=== PATIENT | female | born 1965 | race American Indian/Alaskan Native ===

== ENCOUNTER 2018-01-24 07:17 | Emergency (ER) | payer BC ==
[2018-01-24] MEDS ORDERED: ASPIRIN PO ONE (07:28)
[2018-01-24 07:52] LABS: Basophils % (Auto) 0.4 % (0.0-1.8); Eosinophils # (Auto) 0.1 K/mm3 (0.0-0.4); Eosinophils % (Auto) 1.9 % (0.0-4.3); Hematocrit 39.1 % (30.3-42.9); Hemoglobin 12.6 gm/dl (10.1-14.3); Lymphocytes # (Auto) 2.9 K/mm3 (1.2-5.4); Lymphocytes % (Auto) 42.7 % (13.4-35.0); Mean Corpuscular HGB Conc 32 % (30-34); Mean Corpuscular Hemoglobin 28 pg (28-32); Mean Corpuscular Volume 88 fl (79-97); Monocytes # (Auto) 0.3 K/mm3 (0.0-0.8); Monocytes % (Auto) 4.8 % (0.0-7.3); Platelet Count 296 K/mm3 (140-440); Red Blood Count 4.45 M/mm3 (3.65-5.03); Red Cell Distribution Width 14.1 % (13.2-15.2)
[2018-01-24 08:11] LABS: BUN/Creatinine Ratio 25; Blood Urea Nitrogen 10 mg/dL (7-17); Calcium 9.6 mg/dL (8.4-10.2); Hemolysis Index 3
--- NOTE | 2018-01-24 11:28 | Emergency Department Report ---
ED Chest Pain HPI - General Chief Complaint: Chest Pain Stated Complaint: CHEST PAIN Time Seen by Provider: 01/24/18 11:05 Source: patient Mode of arrival: Ambulatory Limitations: No Limitations - History of Present Illness Initial Comments: She is a 52-year-old female that presents to emergency room with chest pain that started at 7 AM this morning and has resolved at 8 AM this morning. Patient states the pain was in the middle of her chest and radiated to her back. Patient denies shortness of breath. Patient denies anxiety. Patient denies diaphoresis and fever and cough. Patient denies nausea and vomiting. Patient states the pain was a 8 out of 10 and substernal. The patient states it was worse with activity and better with rest. MD Complaint: chest pain -: Sudden Onset: during rest Pain Location: substernal Pain Radiation: back Severity: severe Severity scale (0 -10): 8 Quality: sharp Consistency: now resolved Improves With: medication-other, rest Worsens With: exertion re: denies: nausea, vomting, diaphoresis, dyspnea, sense of impending doom Other Symptoms: denies: cough, fever, syncope, rash, acid taste in mouth, leg swelling, palpitations, burping Treatments Prior to Arrival: aspirin Aspirin use within the Past 7 Days: (0) No - Related Data On Oral Contraceptives: No Allergies Allergy/AdvReac Type Severity Reaction Status Date / Time No Known Allergies Allergy Unverified 01/24/18 07:23 Heart Score - HEART Score History: Slightly suspicious EKG: Normal Age: 45-65 Risk factors: No known risk factors Troponin: < normal limit HEART Score: 1 ED Review of Systems ROS: Stated complaint: CHEST PAIN Other details as noted in HPI Comment: All other systems reviewed and negative Constitutional: denies: chills, fever Eyes: denies: eye pain, eye discharge, vision change ENT: denies: ear pain, throat pain Respiratory: denies: cough, shortness of breath, wheezing Cardiovascular: denies: chest pain, palpitations Endocrine: no symptoms reported Gastrointestinal: denies: abdominal pain, nausea, diarrhea Genitourinary: denies: urgency, dysuria, discharge Musculoskeletal: denies: back pain, joint swelling, arthralgia Skin: denies: rash, lesions Neurological: denies: headache, weakness, paresthesias Psychiatric: denies: anxiety, depression Hematological/Lymphatic: denies: easy bleeding, easy bruising ED Past Medical Hx - Past Medical History Previous Medical History?: Yes Hx Hypertension: Yes Additional medical history: MITRAL VALVE REGURGITATION - Surgical History Past Surgical History?: Yes Hx Cholecystectomy: Yes Hx Breast Surgery: Yes (BREAST SURGERY) Additional Surgical History: TUBAL LIGATION - Family History Family history: hypertension - Social History Smoking Status: Never Smoker Substance Use Type: None ED Physical Exam - General Limitations: No Limitations General appearance: alert, in no apparent distress - Head Head exam: Present: atraumatic, normocephalic - Eye Eye exam: Present: normal appearance - ENT ENT exam: Present: mucous membranes moist - Neck Neck exam: Present: normal inspection - Respiratory Respiratory exam: Present: normal lung sounds bilaterally. Absent: respiratory distress - Cardiovascular Cardiovascular Exam: Present: regular rate, normal rhythm. Absent: systolic murmur, diastolic murmur, rubs, gallop - GI/Abdominal GI/Abdominal exam: Present: soft, normal bowel sounds - Extremities Exam Extremities exam: Present: normal inspection - Back Exam Back exam: Present: normal inspection - Neurological Exam Neurological exam: Present: alert, oriented X3 - Psychiatric Psychiatric exam: Present: normal affect, normal mood - Skin Skin exam: Present: warm, dry, intact, normal color. Absent: rash ED Course Vital Signs 01/24/18 01/24/18 07:24 12:07 Temperature 98.4 F 97.5 F L Pulse Rate 77 99 H Respiratory 17 18 Rate Blood Pressure 153/76 Blood Pressure 147/84 [Left] O2 Sat by Pulse 98 98 Oximetry - Reevaluation(s) Reevaluation #1: Patient states she does not want to be admitted. Patient signed out AMA. Risks discussed with patient. Patient voiced understanding of risks. 01/24/18 12:11 DIRK score - Dirk Score Age > 65: (0) No Aspirin use within the Past 7 Days: (0) No 3 or more CAD Risk Factors: (0) No 2 or more Angina events in past 24 hrs: (0) No Known CAD with more than 50% Stenosis: (0) No Elevated Cardiac Markers: (0) No ST Deviation Greater than 0.5mm: (0) No DIRK Score: 0 ED Medical Decision Making - Lab Data Result diagrams: 01/24/18 07:37 01/24/18 07:37 - EKG Data -: EKG Interpreted by Me EKG shows normal: sinus rhythm, axis, intervals, QRS complexes, ST-T waves Rate: normal - EKG Data Interpretation: no acute changes, normal EKG - Medical Decision Making She has 52-year-old female that presented to emergency with chest pain. Plan was to admit patient but patient signed out AMA. Discussed both sets of labs with patient as well as all results - Differential Diagnosis GERD, chest pain, ACS, musculoskeletal, anxiety Critical care attestation.: If time is entered above; I have spent that time in minutes in the direct care of this critically ill patient, excluding procedure time. ED Disposition Clinical Impression: Chest pain Disposition: DC-07 LEFT AGAINST MED ADVICE Is pt being admited?: No Does the pt Need Aspirin: No Condition: Stable Instructions: Chest Pain (ED) Additional Instructions: Patient to return to ER if condition worsens. Patient to see primary care 1-2 days. Patient to continue all medications. Patient to monitor blood pressure Referrals: PRIMARY CARE, [Primary Care Provider] - 3-5 Days Time of Disposition: 12:13
[2018-01-24] MEDS ORDERED: PERCOCET 5/325 PO ONE (12:04)
[2018-01-24 12:08] VITALS: BP 147/84
== END 2018-01-24 12:15 | disposition left against medical advice (07) ==
LOC: ED 07:17
DX: R07.9 Chest pain, unspecified (principal); I10 Essential (primary) hypertension
CPT/HCPCS: 36415; 80048; 84484; 85025; 93005; 93010

== ENCOUNTER 2018-02-06 06:42 | Outpatient (CLI) | payer BC | END 2018-02-06 06:43 | disposition home or self-care (01) | LOC: ECHO 06:42 | PROVIDERS: ATTEND Physician Assistant Medical | DX: I08.1 Rheumatic disorders of both mitral and tricuspid valves (principal); I10 Essential (primary) hypertension | CPT/HCPCS: 93306 ==

== ENCOUNTER 2018-02-11 05:58 | Outpatient (CLI) | payer BC | END 2018-02-11 05:59 | disposition home or self-care (01) | LOC: CARD 05:58 | PROVIDERS: ATTEND Physician Assistant Medical | DX: I10 Essential (primary) hypertension (principal); R07.9 Chest pain, unspecified; Z90.49 Acquired absence of other specified parts of digestive tract; Z98.890 Other specified postprocedural states | CPT/HCPCS: 93017 ==

== ENCOUNTER 2018-02-20 13:22 | Outpatient (CLI) | payer BC ==
--- NOTE | 2018-02-20 20:28 | Magnetic Resonance Report ---
FINAL REPORT PROCEDURE: MRI left knee without contrast. TECHNIQUE: Magnetic resonance imaging of the LEFT knee was performed using standard pulse sequences. CPT 76886 HISTORY: Knee pain. COMPARISON: No prior studies are available for comparison. FINDINGS: The bones appear intact without fracture. There is normal signal intensity from the bone marrow. There are no definite bone contusions. The articular cartilage appears satisfactory. The lateral meniscus appears intact. On the coronal images there is a short segment of abnormal signal within the body of the medial meniscus. This is located centrally and along the inferior surface. This is consistent with a small tear or degeneration. The remainder of the medial meniscus appears intact. The anterior cruciate ligament and posterior cruciate ligament appear intact. The quadriceps tendon and the patellar ligament are intact. There is a large knee effusion. The medial collateral ligament and the lateral collateral ligament complex appear intact. IMPRESSION: Small area of abnormal signal intensity within the body of the medial meniscus. Large knee effusion.
--- NOTE | 2018-02-20 20:54 | Magnetic Resonance Report ---
FINAL REPORT PROCEDURE: MRI right knee without contrast. TECHNIQUE: Magnetic resonance imaging of the RIGHT knee was performed using standard pulse sequences. CPT 89300 HISTORY: Knee pain. COMPARISON: No prior studies are available for comparison. FINDINGS: The bones appear intact without fracture. There is normal signal intensity from the bone marrow. There are no bone contusions. There is early osteophyte formation arising medially from the distal femur and the proximal tibia. The articular cartilage appears satisfactory. The lateral meniscus appears intact. There is a large area of abnormal signal within body and posterior horn of the medial meniscus. This signal extends to the inferior articular surface. It is consistent with a horizontal cleavage tear. The anterior cruciate ligament and posterior cruciate ligament are intact. The quadriceps tendon and the patellar ligament are intact. There is a small knee effusion in the suprapatellar bursa. The medial collateral ligament and the lateral collateral ligament complex appear intact. IMPRESSION: Large horizontal tear in the body and posterior horn of the medial meniscus. Small knee effusion. Early osteoarthritis.
== END 2018-02-20 13:23 | disposition home or self-care (01) ==
LOC: MRI 13:22
PROVIDERS: ATTEND Orthopaedic Surgery
DX: S83.241A Other tear of medial meniscus, current injury, right knee, initial encounter (principal); M25.462 Effusion, left knee; X58.XXXA Exposure to other specified factors, initial encounter; Y93.89 Activity, other specified; Y92.89 Other specified places as the place of occurrence of the external cause; Y99.8 Other external cause status
CPT/HCPCS: 73721

== ENCOUNTER 2018-07-15 08:28 | Outpatient (CLI) | payer BC ==
[2018-07-15 08:47] LABS: Bilirubin,Urine NEG (Negative); Blood,Urine NEG (Negative); Color,Urine Yellow (Yellow); Mucus,Urine FEW /HPF; Protein,Urine <15 mg/dL mg/dL (Negative); Urobilinogen,Urine < 2.0 mg/dL (<2.0)
== END 2018-07-15 08:29 | disposition home or self-care (01) ==
LOC: LAB 08:28
DX: N39.0 Urinary tract infection, site not specified (principal); I10 Essential (primary) hypertension; M19.90 Unspecified osteoarthritis, unspecified site; Z90.49 Acquired absence of other specified parts of digestive tract
CPT/HCPCS: 81001; 87086

== ENCOUNTER 2018-11-25 05:57 | Outpatient (CLI) | payer BC ==
--- NOTE | 2018-11-25 16:02 | XRay Report ---
CHEST TWO VIEWS: 11/25/18 14:27 CLINICAL: Hypertension COMPARISON: None FINDINGS: Normal heart and pulmonary vasculature. The lungs are normally expanded and clear.Moderate degenerative change in the thoracic spine. IMPRESSION: No acute cardiopulmonary process.
== END 2018-11-25 05:58 | disposition home or self-care (01) ==
LOC: CARD 05:57
DX: I10 Essential (primary) hypertension (principal); M47.814 Spondylosis without myelopathy or radiculopathy, thoracic region; M19.90 Unspecified osteoarthritis, unspecified site; R94.31 Abnormal electrocardiogram [ECG] [EKG]; Z90.49 Acquired absence of other specified parts of digestive tract
CPT/HCPCS: 71046; 93005; 93010

== ENCOUNTER 2019-07-03 06:02 | Outpatient (CLI) | payer BC ==
[2019-07-03 09:54] LABS: Alanine Aminotransferase 21 units/L (7-56); Albumin 4.4 g/dL (3.9-5); BUN/Creatinine Ratio 18; Blood Urea Nitrogen 7 mg/dL (7-17); Calcium 9.7 mg/dL (8.4-10.2); Hemolysis Index 2; LDL Cholesterol,Direct 142 mg/dL (50-130)
[2019-07-03 10:29] LABS: Chol/HDL Ratio 4.06 %; HDL Cholesterol 47 mg/dL (40-59)
[2019-07-03 11:02] LABS: Bacteria,Urine 1+ /HPF (Negative); Bilirubin,Urine NEG (Negative); Blood,Urine NEG (Negative); Color,Urine Amber (Yellow); Mucus,Urine 3+ /HPF; Protein,Urine <15 mg/dL mg/dL (Negative); Urobilinogen,Urine < 2.0 mg/dL (<2.0)
== END 2019-07-03 06:03 | disposition home or self-care (01) ==
LOC: LAB 06:02
PROVIDERS: ATTEND Nurse Practitioner Neonatal, Critical Care
DX: I10 Essential (primary) hypertension (principal); R73.03 Prediabetes
CPT/HCPCS: 36415; 80053; 80061; 81001; 83036; 84443

== ENCOUNTER 2020-02-18 08:05 | Observation (INO) | payer BC ==
[2020-02-18 09:11] LABS: Basophils % (Auto) 0.6 % (0.0-1.8); Eosinophils # (Auto) 0.1 K/mm3 (0.0-0.4); Eosinophils % (Auto) 3.4 % (0.0-4.3); Hematocrit 39.6 % (30.3-42.9); Hemoglobin 13.2 gm/dl (10.1-14.3); Lymphocytes # (Auto) 2.4 K/mm3 (1.2-5.4); Lymphocytes % (Auto) 54.8 % (13.4-35.0); Mean Corpuscular HGB Conc 33 % (30-34); Mean Corpuscular Volume 88 fl (79-97); Monocytes # (Auto) 0.2 K/mm3 (0.0-0.8); Platelet Count 315 K/mm3 (140-440); Red Blood Count 4.51 M/mm3 (3.65-5.03); Red Cell Distribution Width 13.5 % (13.2-15.2)
--- NOTE | 2020-02-18 09:15 | Cat Scan Report ---
CT HEAD WITHOUT CONTRAST INDICATION : MAIN: headache, HX OF HBP, NOSE BLEED. TECHNIQUE: Axial imaging performed from the skull apex through the skull base without the use of con trast. Sagittal and coronal reformatted images. All CT scans at this location are performed using C T dose reduction for ALARA by means of automated exposure control. COMPARISON: 06/26/2017 FINDINGS: Parenchyma: No acute intracranial hemorrhage or parenchymal abnormality. Ventricles: Ventricles are normal in size and appear symmetric. Bones: No acute osseous abnormality. Sinuses: Sinuses and mastoid air cells are clear. Soft tissues: Soft tissues including the orbits appear normal. IMPRESSION: No acute abnormality. Signer Name: Preet Feliciano Jr, MD Signed: 02/18/2020 9:10 AM Workstation Name: [id number]
[2020-02-18 09:19] LABS: INR 0.94 (0.87-1.13)
[2020-02-18 09:20] LABS: Partial Thromboplastin Time 26.6 Sec. (24.2-36.6)
[2020-02-18 09:33] LABS: Alanine Aminotransferase 23 units/L (7-56); Albumin 4.5 g/dL (3.9-5)
[2020-02-18 09:34] LABS: Creatine Kinase MB 1.6 ng/mL (0.0-4.0)
[2020-02-18 09:35] LABS: Bilirubin,Direct < 0.2 mg/dL (0-0.2)
[2020-02-18 09:37] LABS: BUN/Creatinine Ratio 14; Blood Urea Nitrogen 7 mg/dL (7-17); Calcium 9.7 mg/dL (8.4-10.2); Hemolysis Index 6
--- NOTE | 2020-02-18 09:41 | Vascular Lab Report ---
DUPLEX DOPPLER RIGHT LOWER EXTREMITY VEINS INDICATION: Popliteal pain/ Syncope FINDINGS: There is no thrombus within the deep veins of the right lower extremity from the common femoral to th e calf veins. There is normal compression and augmentation on spectral analysis. IMPRESSION: No sonographic evidence for DVT in the right lower extremity. Signer Name: Prince Alejandro MD Signed: 02/18/2020 9:36 AM Workstation Name: [email or web address]
--- NOTE | 2020-02-18 10:07 | XRay Report ---
CHEST 1 VIEW 02/18/2020 8:59 AM INDICATION / CLINICAL INFORMATION: Syncope/HTN. COMPARISON: Chest x-ray on 11/25/2018 FINDINGS: SUPPORT DEVICES: None. HEART / MEDIASTINUM: No significant abnormality. LUNGS / PLEURA: No significant pulmonary or pleural abnormality. No pneumothorax. ADDITIONAL FINDINGS: No significant additional findings. IMPRESSION: 1. No acute findings. Signer Name: Prince Alejandro MD Signed: 02/18/2020 10:03 AM Workstation Name: [id number]
--- NOTE | 2020-02-18 10:31 | History and Physical Report ---
History of Present Illness Date of examination: 02/18/20 Date of admission: 02/18/20 Chief complaint: syncope History of present illness: This is a 54-year-old female with h/o HTN, mitral valve prolapse who works in food services at [employer] admitted today after having a syncopal episode. She states that she was not feeling well the past few days due to high blood pressure. She had been experiencing headache and generalized weakness and malaise. She was going to call out sick from work today but decided to come to work instead. After arrival at work, she continued to feel ill and thus she decided to go home. She got as far as the lobby, tried to reach the push button for the elevator and then she passed out. She states that she fell and briefly lost consciousness but did not hurt her self. She was transported to the emergency department for further evaluation. She states that she has never had a syncopal or near syncopal episode before. There is no report of seizure like activities. Patient complains of mild occipital headache now, BP noted to be slightly elevated in the ER. She denies any occurrence of chest pain, SOB, palpitations, n/v, diaphoresis. Chest x-ray without any infiltrates, normal troponin, EKG NSR, CT head without any acute findings. Patient being admitted for further evaluation and management. Review of System: Constitutional: no fever, no chills, no weight loss, + headache Ears, eyes, nose, mouth and throat: no nasal congestion, no nasal discharge, no sinus pressure, no vision change, no red eye. Neck: No neck pain or rigidity. Cardiovascular: No chest pain, no orthopnea, no palpitations, no leg swelling Respiratory: No shortness of breath, no cough, no congestion, no wheezing Gastrointestinal: no abdominal pain, no nausea, no vomiting Genitourinary : no dysuria, no hematuria Musculoskeletal: no joint swelling or muscle ache Integumentary: no rash, no pruritis Neurological: no parathesias, no numbness, no tingling Endocrine: no cold or heat intolerance, no polyuria or polydipsia Hematologic/Lymphatic: no easy bruising, no easy bleeding, no gland swelling Allergic/Immunologic: no urticaria, no angioedema. Past History Past Medical History: hyperlipidemia, other (Mitral valve prolapse) Past Surgical History: Other (Breast reduction, tubal ligation, cholecystectomy) Social history: denies: smoking, alcohol abuse, prescription drug abuse Family history: hypertension Medications and Allergies Allergies Allergy/AdvReac Type Severity Reaction Status Date / Time No Known Allergies Allergy Unverified 01/24/18 07:23 Home Medications Medication Instructions Recorded Confirmed Last Taken Type Amlodipine Besylate/Valsartan 10 - 320 mg PO QDAY 02/18/20 02/18/20 02/18/20 History [Amlodipine-Valsartan 10-320 mg] Metoprolol SUCCINATE ER TAB 50 mg PO QDAY 02/18/20 02/18/20 02/18/20 History Exam - Physical Exam Narrative exam: GENERAL: well-developed and obese -Swedish female lying on bed appeared to be in no discomfort. HEENT: Normocephalic. Atraumatic. No conjunctival congestion or icterus. Patient has moist mucous membranes. NECK: Supple. Trachea midline. CHEST/LUNGS: Clear to auscultated bilaterally, breathing nonlabored. No wheezes crackles or rhonchi. HEART/CARDIOVASCULAR: Regular in rate and rhythm. S1 and S2 positive. ABDOMEN: Abdomen is soft, nontender. Patient has normal bowel sounds. SKIN: There is no rash. Warm and dry. NEURO: No focal motor deficit. Follows command. MUSCULOSKELETAL: No joint effusion or tenderness. EXTRIMITY: No edema, no cyanosis or clubbing. PSYCH: Cooperative. - Constitutional Vitals: Temp Pulse Resp BP Pulse Ox 98.6 F 75 12 153/75 100 02/18/20 08:12 02/18/20 08:12 02/18/20 08:12 02/18/20 08:12 02/18/20 08:12 Results - Labs CBC & Chem 7: 02/18/20 08:37 02/19/20 04:33 Labs: Abnormal lab results 02/18/20 02/18/20 Range/Units 08:37 08:37 WBC 4.4 L (4.5-11.0) K/mm3 Lymph % (Auto) 54.8 H (13.4-35.0) % Seg Neutrophils % 36.2 L (40.0-70.0) % Seg Neutrophils # 1.6 L (1.8-7.7) K/mm3 Potassium 3.5 L (3.6-5.0) mmol/L Creatinine 0.5 L (0.7-1.2) mg/dL Glucose 101 H (65-100) mg/dL Total Creatine Kinase 151 H (30-135) units/L - Imaging and Cardiology EKG: report reviewed (NSR) Chest x-ray: report reviewed (no infiltrates) CT Scan - head: report reviewed (no acute abnormality) Assessment and Plan Syncope, likely vasovagal hypertension, uncontrolled Mitral valve prolapse h/o Obesity Hypokalemia DVT prophylaxis Full code - admit to telemetry for observation -Cardiology consulted, plan for stress test tomorrow morning -We will follow 2D echo, initial work-up in the ER is negative -Replete electrolytes, monitor BMP -Continue to monitor clinically with supportive care - lovenox for DVt Px
--- NOTE | 2020-02-18 10:32 | Emergency Department Report ---
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 She states that she was not feeling well today. She complained of weakness and generalized malaise. She decided that she would go home. She got as far as the lobby and then suffered a syncopal episode. She states that she fell and briefly lost consciousness but did not hurt her self. She was transported to the emergency department for further evaluation. She states that she has never had a syncopal or near syncopal episode before. She did complain of some occipital frontal headache which was moderate in intensity and not sudden in onset. -: Sudden Consistency: now resolved Improves with: none Worsens with: none Associated Symptoms: denies other symptoms, weakness Treatments Prior to Arrival: none - Related Data Allergies Allergy/AdvReac Type Severity Reaction Status Date / Time No Known Allergies Allergy Unverified 01/24/18 07:23 ED Review of Systems ROS: Stated complaint: SYNCOPAL EPISODE Other details as noted in HPI Constitutional: weakness. denies: chills, fever Eyes: denies: eye pain, eye discharge, vision change ENT: denies: ear pain, throat pain Respiratory: denies: cough, shortness of breath, wheezing Cardiovascular: denies: chest pain, palpitations Endocrine: no symptoms reported Gastrointestinal: denies: abdominal pain, nausea, diarrhea Genitourinary: denies: urgency, dysuria, discharge Musculoskeletal: as per HPI, other (Complained of discomfort behind the right knee). denies: back pain, arthralgia Skin: denies: rash, lesions Neurological: headache. denies: weakness, paresthesias Psychiatric: denies: anxiety, depression Hematological/Lymphatic: denies: easy bleeding, easy bruising ED Past Medical Hx - Past Medical History Hx Hypertension: Yes Hx Arthritis: Yes Additional medical history: MITRAL VALVE REGURGITATION - Surgical History Hx Cholecystectomy: Yes Hx Breast Surgery: Yes (BREAST SURGERY) Additional Surgical History: TUBAL LIGATION - Social History Smoking Status: Never Smoker Substance Use Type: Alcohol Other Social History: No recent travel. ED Physical Exam - General Limitations: No Limitations General appearance: alert, in no apparent distress - Head Head exam: Present: atraumatic, normocephalic - Eye Eye exam: Present: normal appearance, PERRL, EOMI. Absent: scleral icterus - ENT ENT exam: Present: mucous membranes moist - Neck Neck exam: Present: normal inspection. Absent: tenderness, meningismus - Respiratory Respiratory exam: Present: normal lung sounds bilaterally. Absent: respiratory distress - Cardiovascular Cardiovascular Exam: Present: regular rate, normal rhythm. Absent: systolic murmur, diastolic murmur, rubs, gallop - GI/Abdominal GI/Abdominal exam: Present: soft, normal bowel sounds. Absent: distended, tenderness, guarding, rebound - Extremities Exam Extremities exam: Present: normal inspection - Back Exam Back exam: Present: normal inspection - Neurological Exam Neurological exam: Present: alert, oriented X3, CN II-XII intact. Absent: motor sensory deficit - Psychiatric Psychiatric exam: Present: normal affect, normal mood - Skin Skin exam: Present: warm, dry, intact, normal color. Absent: rash ED Course Vital Signs 02/18/20 08:12 Temperature 98.6 F Pulse Rate 75 Respiratory 12 Rate Blood Pressure 153/75 O2 Sat by Pulse 100 Oximetry - Reevaluation(s) Reevaluation #1: Patient remained largely asymptomatic in the emergency department. Her work-up was essentially negative. She is admitted to the hospital service for further care and evaluation. 02/18/20 10:35 ED Medical Decision Making - Lab Data Result diagrams: 02/18/20 08:37 02/18/20 08:37 Laboratory Results - last 24 hr 02/18/20 02/18/20 02/18/20 08:37 08:37 08:37 WBC 4.4 L RBC 4.51 Hgb 13.2 Hct 39.6 MCV 88 MCH 29 MCHC 33 RDW 13.5 Plt Count 315 Lymph % (Auto) 54.8 H Steele % (Auto) 5.0 Eos % (Auto) 3.4 Baso % (Auto) 0.6 Lymph # 2.4 Steele # 0.2 Eos # 0.1 Baso # 0.0 Seg Neutrophils % 36.2 L Seg Neutrophils # 1.6 L PT 12.7 INR 0.94 APTT 26.6 D-Dimer 178.53 Sodium 140 Potassium 3.5 L Chloride 101.9 Carbon Dioxide 24 Anion Gap 18 BUN 7 Creatinine 0.5 L Estimated GFR > 60 BUN/Creatinine Ratio 14 Glucose 101 H Calcium 9.7 Magnesium 2.10 Total Bilirubin Direct Bilirubin Indirect Bilirubin AST ALT Alkaline Phosphatase Total Creatine Kinase 151 H CK-MB (CK-2) 1.6 CK-MB (CK-2) Rel Index 1.0 Troponin T < 0.010 Total Protein Albumin Albumin/Globulin Ratio 02/18/20 08:37 WBC RBC Hgb Hct MCV MCH MCHC RDW Plt Count Lymph % (Auto) Steele % (Auto) Eos % (Auto) Baso % (Auto) Lymph # Steele # Eos # Baso # Seg Neutrophils % Seg Neutrophils # PT INR APTT D-Dimer Sodium Potassium Chloride Carbon Dioxide Anion Gap BUN Creatinine Estimated GFR BUN/Creatinine Ratio Glucose Calcium Magnesium Total Bilirubin 0.40 Direct Bilirubin < 0.2 Indirect Bilirubin 0.2 AST 24 ALT 23 Alkaline Phosphatase 66 Total Creatine Kinase CK-MB (CK-2) CK-MB (CK-2) Rel Index Troponin T Total Protein 7.1 Albumin 4.5 Albumin/Globulin Ratio 1.7 - EKG Data -: EKG Interpreted by Me EKG shows normal: sinus rhythm, axis, intervals, QRS complexes, ST-T waves Rate: normal - EKG Data Interpretation: no acute changes - Radiology Data Radiology results: report reviewed Chest x-ray no acute process. CT the head normal per radiologist. Doppler study was negative. Critical care attestation.: If time is entered above; I have spent that time in minutes in the direct care of this critically ill patient, excluding procedure time. ED Disposition Clinical Impression: Syncope Qualifiers: Syncope type: unspecified Qualified Code(s): R55 - Syncope and collapse Disposition: OP ADMIT IP TO THIS HOSP Is pt being admited?: Yes Does the pt Need Aspirin: Yes Condition: Stable Instructions: Syncope (ED) Referrals: GREGG JOHN MD [Primary Care Provider] - 3-5 Days Time of Disposition: 10:51
[2020-02-18] MEDS: ASPIRIN 325 MG TAB PO ONE ×2 (11:00→11:07)
[2020-02-18] MEDS: FAMOTIDINE 20 MG TAB PO SCH ×2 (11:00→22:39)
[2020-02-18] MEDS: ENOXAPARIN 40 MG/0.4 ML INJ SUB-Q SCH (11:00)
[2020-02-18] MEDS ORDERED: ONDANSETRON 4 MG/2 ML INJ IV PRN (11:00)
[2020-02-18] MEDS ORDERED: ACETAMINOPHEN 325 MG TAB PO PRN (11:00)
--- NOTE | 2020-02-18 11:54 | Consultation ---
History of Present Illness Consult date: 02/18/20 Requesting physician: EDNA BENTON Consult reason: syncope History of present illness: The pt is a 54-year-old female with a past medical history of HTN. Pt works in [employer] here. She presented for evaluation following a syncopal episode this morning. She states that she was not feeling well the past few days due to high blood pressure. She had been experiencing headache and generalized weakness and malaise. She was going to call out sick from work today but decided to come to work instead. After arrival at work, she continued to feel ill and thus she decided to go home. 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 She was transported to the emergency department for further evaluation. She states that she has never had a syncopal or near syncopal episode before. She denies any occurrence of chest pain, SOB, palpitations, n/v, diaphoresis. Echo done 02/2018 showed EF 50-55%, impaired relaxation, mild MR and TR, RVSP 34mmHg. Past History Past Medical History: hypertension Medications and Allergies Allergies Allergy/AdvReac Type Severity Reaction Status Date / Time No Known Allergies Allergy Unverified 01/24/18 07:23 Active Meds: Active Medications Acetaminophen (Tylenol) 650 mg PO Q4H PRN PRN Reason: Pain MILD(1-3)/Fever >100.5/VILLARREAL Enoxaparin Sodium (Enoxaparin) 40 mg SUB-Q QDAY@1000 [facility] Last Admin: 02/18/20 11:00 Dose: 40 mg Documented by: Famotidine (Pepcid) 20 mg PO BID [facility] Last Admin: 02/18/20 11:00 Dose: 20 mg Documented by: Ondansetron HCl (Zofran) 4 mg IV Q8H PRN PRN Reason: Nausea And Vomiting Sodium Chloride (Sodium Chloride Flush Syringe 10 Ml) 10 ml IV BID [facility] Sodium Chloride (Sodium Chloride Flush Syringe 10 Ml) 10 ml IV PRN PRN PRN Reason: LINE FLUSH Review of Systems Constitutional: no weight loss, no weight gain, no fever, no chills, no sweats Ears, nose, mouth and throat: no ear pain, no nose pain, no sinus pressure, no sinus pain Cardiovascular: syncope, lightheadedness, high blood pressure, no chest pain, no orthopnea, no palpitations, no rapid/irregular heart beat, no edema, no shortness of breath, no dyspnea on exertion, no paroxysmal nocturnal dyspnea, no leg edema Respiratory: no cough, no shortness of breath, no dyspnea on exertion, no congestion, no wheezing, no pain on inspiration Gastrointestinal: no abdominal pain, no nausea, no vomiting, no diarrhea, no constipation, no change in bowel habits Genitourinary Female: no pelvic pain, no flank pain, no dysuria, no urinary frequency, no urgency Musculoskeletal: no neck stiffness, no neck pain, no shooting arm pain, no arm numbness/tingling, no low back pain, no shooting leg pain Integumentary: no rash, no pruritis, no redness, no sores, no wounds Neurological: syncope, no head injury, no paralysis, no parathesias, no numbness, no tingling, no seizures Psychiatric: no anxiety Endocrine: no cold intolerance, no heat intolerance Hematologic/Lymphatic: no easy bruising, no easy bleeding Allergic/Immunologic: no urticaria Physical Examination Vital Signs Temp Pulse Resp BP Pulse Ox 98.6 F 75 12 153/75 100 02/18/20 08:12 02/18/20 08:12 02/18/20 08:12 02/18/20 08:12 02/18/20 08:12 General appearance: no acute distress HEENT: Positive: PERRL, Normocephaly, Mucus Membranes Moist Neck: Positive: neck supple, trachea midline Cardiac: Positive: Reg Rate and Rhythm, S1/S2 Lungs: Positive: Decreased Breath Sounds Neuro: Positive: Grossly Intact Abdomen: Negative: Tender Skin: Negative: Rash Musculoskeletal: No Pain Extremities: Absent: edema Results 02/18/20 08:37 02/18/20 08:37 Cardiac Enzymes 02/18/20 02/18/20 Range/Units 08:37 08:37 AST 24 (5-40) units/L CK-MB (CK-2) 1.6 (0.0-4.0) ng/mL Coagulation 02/18/20 Range/Units 08:37 PT 12.7 (12.2-14.9) Sec. INR 0.94 (0.87-1.13) APTT 26.6 (24.2-36.6) Sec. CBC 02/18/20 Range/Units 08:37 WBC 4.4 L (4.5-11.0) K/mm3 RBC 4.51 (3.65-5.03) M/mm3 Hgb 13.2 (10.1-14.3) gm/dl Hct 39.6 (30.3-42.9) % Plt Count 315 (140-440) K/mm3 Lymph # 2.4 (1.2-5.4) K/mm3 Cannon # 0.2 (0.0-0.8) K/mm3 Eos # 0.1 (0.0-0.4) K/mm3 Baso # 0.0 (0.0-0.1) K/mm3 Comprehensive Metabolic Panel 02/18/20 02/18/20 Range/Units 08:37 08:37 Sodium 140 (137-145) mmol/L Potassium 3.5 L (3.6-5.0) mmol/L Chloride 101.9 (98-107) mmol/L Carbon Dioxide 24 (22-30) mmol/L BUN 7 (7-17) mg/dL Creatinine 0.5 L (0.7-1.2) mg/dL Glucose 101 H (65-100) mg/dL Calcium 9.7 (8.4-10.2) mg/dL Direct Bilirubin < 0.2 (0-0.2) mg/dL Indirect Bilirubin 0.2 mg/dL AST 24 (5-40) units/L ALT 23 (7-56) units/L Alkaline Phosphatase 66 (35-129) units/L Total Protein 7.1 (6.3-8.2) g/dL Albumin 4.5 (3.9-5) g/dL - Imaging and Cardiology Echo: report reviewed (02/2018 showed EF 50-55%, impaired relaxation, mild MR and TR, RVSP 34mmHg.) EKG: report reviewed, image reviewed EKG interpretations - Telemetry EKG Rhythm: Sinus Rhythm - EKG Sinus rhythms and dysrhythmias: sinus rhythm Assessment and Plan Head CT with NAF. DDimer WNL. ECG with NSR, NAF. Nayeli negative for AMI x 1. Obtain second set of Nayeli. Obtain echo. Plan for lexiscan MPI stress test in AM. NPO after MN. Optimize anti-hypertensive regimen. The patient has been seen in conjunction with Dr. Baker who agrees with the assessment and plan of care. - Patient Problems (1) Syncope Current Visit: Yes Status: Acute Qualifiers: Syncope type: unspecified Qualified Code(s): R55 - Syncope and collapse (2) Accelerated hypertension Current Visit: Yes Status: Acute
[2020-02-18] MEDS ORDERED: amLODIPine 10 MG TAB ONE (16:17)
[2020-02-18] MEDS: amLODIPine 10 MG TAB PO SCH (16:24)
[2020-02-19 06:24] LABS: Chol/HDL Ratio 4.06 %
[2020-02-19] MEDS ORDERED: REGADENOSON 0.4 MG/5 ML INJ IV ONE ×2 (08:33→09:00)
--- NOTE | 2020-02-19 09:51 | Progress Note ---
Assessment and Plan tte reviewed - EF 50-55%, impaired relaxation, RVSP 28mmHg. Telemetry reviewed with no acute events overnight. Orthostatic VS unremarkable. Proceed with lexiscan MPI stress test. Await findings. The patient has been seen in conjunction with Dr. Baker who agrees with the assessment and plan of care. - Patient Problems (1) Syncope Current Visit: Yes Status: Acute Qualifiers: Syncope type: unspecified Qualified Code(s): R55 - Syncope and collapse (2) Accelerated hypertension Current Visit: Yes Status: Acute Subjective Date of service: 02/19/20 Principal diagnosis: syncope Interval history: pt for stress test today, no current complaints. tele reviewed - in SR, no acute events overnight. Objective Last Vital Signs Temp 98.6 F 02/19/20 04:11 Pulse 68 02/19/20 04:11 Resp 18 02/19/20 04:11 BP 126/68 02/19/20 04:11 Pulse Ox 97 02/19/20 04:11 - Physical Examination General: No Apparent Distress HEENT: Positive: PERRL, Normocephaly, Mucus Membranes Moist Neck: Positive: neck supple, trachea midline Cardiac: Positive: Reg Rate and Rhythm, S1/S2 Lungs: Positive: clear to auscultation Neuro: Positive: Grossly Intact Abdomen: Negative: Tender Skin: Negative: Rash Musculoskeletal: No Pain Extremities: Absent: edema - Labs and Meds Lipids 02/19/20 Range/Units 04:33 Triglycerides 111 (2-149) mg/dL Cholesterol 195 (50-199) mg/dL HDL Cholesterol 48 (40-59) mg/dL Cholesterol/HDL Ratio 4.06 % Comprehensive Metabolic Panel 02/19/20 Range/Units 04:33 Potassium 3.6 (3.6-5.0) mmol/L - Imaging and Cardiology EKG: report reviewed, image reviewed Echo: report reviewed (02/2018 showed EF 50-55%, impaired relaxation, mild MR and TR, RVSP 34mmHg.) - Telemetry EKG Rhythm: Sinus Rhythm - EKG Sinus rhythms and dysrhythmias: sinus rhythm
[2020-02-19] MEDS ORDERED: ENOXAPARIN 60 MG/0.6 ML INJ SUB-Q SCH (10:00)
[2020-02-19] MEDS ORDERED: ASPIRIN 81 MG TAB CHEW PO SCH (10:00)
--- NOTE | 2020-02-19 10:21 | Discharge Summary ---
Providers - Providers Date of Admission: 02/18/20 10:38 Date of discharge: 02/19/20 Attending physician: EDNA BENTON 02/18/20 10:34 Consult to Physician [CONS] Routine Comment: Consulting Provider: DOMNIIQUE JULIEN Physician Instructions: Reason For Exam: syncope [facility] Condition: Stable Hospital course: This is a 54-year-old female with h/o HTN, mitral valve prolapse who works in food services at [employer] admitted today after having a syncopal episode. She states that she has never had a syncopal or near syncopal episode before. There is no report of seizure like activities. Patient complains of mild occipital headache, BP noted to be slightly elevated in the ER. She denies any occurrence of chest pain, SOB, palpitations, n/v, diaphoresis. Chest x-ray without any infiltrates, normal troponin, EKG NSR, CT head without any acute findings. Patient was admitted for further evaluation and management. TTE reviewed - EF 50-55%, impaired relaxation, RVSP 28mmHg. Repleted K, Telemetry reviewed with no acute events overnight. Orthostatic VS unremarkable. MPI stress test was obtained which was negative, cardiology consulted. Patient was then discharged home in stable condition. - Imaging and Cardiology EKG: report reviewed (NSR) Chest x-ray: report reviewed (no infiltrates) CT Scan - head: report reviewed (no acute abnormality) 2d echo - EF 50-55%, impaired relaxation, RVSP 28mmHg. MPI stress test: negative Discharge diagnosis and Mx: Syncope, likely vasovagal hypertension, uncontrolled Mitral valve prolapse h/o Obesity Hypokalemia Physical Exam GENERAL: well-developed and obese -Danish female lying on bed appeared to be in no discomfort. HEENT: Normocephalic. Atraumatic. No conjunctival congestion or icterus. Patient has moist mucous membranes. NECK: Supple. Trachea midline. CHEST/LUNGS: Clear to auscultated bilaterally, breathing nonlabored. No wheezes crackles or rhonchi. HEART/CARDIOVASCULAR: Regular in rate and rhythm. S1 and S2 positive. ABDOMEN: Abdomen is soft, nontender. Patient has normal bowel sounds. SKIN: There is no rash. Warm and dry. NEURO: No focal motor deficit. Follows command. MUSCULOSKELETAL: No joint effusion or tenderness. EXTRIMITY: No edema, no cyanosis or clubbing. PSYCH: Cooperative. Disposition: DC-01 TO HOME OR SELFCARE Time spent for discharge: 24 minutes Core Measure Documentation - Palliative Care Palliative Care/ Comfort Measures: Not Applicable - Core Measures Any of the following diagnoses?: none Exam - Constitutional Vitals: Temp Pulse Resp BP Pulse Ox 98.6 F 68 18 126/68 97 02/19/20 04:11 02/19/20 04:11 02/19/20 04:11 02/19/20 04:11 02/19/20 04:11 Plan Activity: advance as tolerated Weight Bearing Status: Weight Bear as Tolerated Diet: low fat, low salt Follow up with: BRIANNA RAZOTUCSON MD PIPPA [Primary Care Provider] - 3-5 Days LESLEE NASSAR MD [Staff Physician] - 7 Days Prescriptions: Aspirin [Aspirin BABY CHEW TAB] 81 mg PO QDAY #30 tab.chew
--- NOTE | 2020-02-19 11:40 | Event Note ---
Date: 02/19/20 S/p lexiscan MPI stress test today which was negative. Currently stable cardiac status. Recommend 7 day OP holter study. Pt may discharge from cardiology standpoint. Pt to present to our [place] office on 02/22/2020 @ 10:00AM for initiation of 7 day Holter study. Follow up in our [place] office with Dr. Baker on 03/09/2020 @ 2:45PM. Max BRIONES NP / DR. BAKER
[2020-02-19 11:42] VITALS: BP 164/80
[2020-02-19] MEDS: ENOXAPARIN 40 MG/0.4 ML INJ SUB-Q SCH (13:08)
[2020-02-19] MEDS: amLODIPine 10 MG TAB PO SCH (13:09)
[2020-02-19] MEDS: FAMOTIDINE 20 MG TAB PO SCH (13:09)
--- NOTE | 2020-02-19 15:24 | Treadmill Report ---
INDICATIONS: The patient is a 54-year-old female with history of hypertension, had an episode of near syncope/syncopal episode. 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 Subsequently, the patient denied any chest pain. The patient received IV regadenoson 0.4 mg intravenously. Baseline EKG showed sinus rhythm within normal limits. The patient tolerated the regadenoson without any significant side effects. No EKG changes were noted. No chest pain. The patient had myocardial perfusion imaging performed at rest and post-vasodilation using technetium Myoview imaging. Myocardial perfusion imaging showed very mild inferior defect which appeared to be worse in resting images. Gated study was performed post-vasodilation. This showed left ventricular ejection fraction calculated at 51%. Normal left ventricular volumes were noted. Transient ischemic dilation ratio was found to be 0.96. FINAL IMPRESSION: 1. The patient tolerated IV regadenoson without any significant side effects. 2. No EKG changes or chest pain. 3. No significant myocardial perfusion defects were noted except for mild fixed inferior defect, which was found to be artifactual. No significant ischemia noted and normal left ventricular systolic function noted on gated study post-vasodilation. JOB# [id number] SAMIR/HAYLEY PENA
== END 2020-02-19 16:54 | disposition home or self-care (01) ==
LOC: ED 08:05 → 4A 10:38
PROVIDERS: ADMIT Internal Medicine; ATTEND Internal Medicine
DX: R55 Syncope and collapse (principal); I10 Essential (primary) hypertension; E87.6 Hypokalemia; I34.1 Nonrheumatic mitral (valve) prolapse; E66.9 Obesity, unspecified; E78.5 Hyperlipidemia, unspecified; M19.90 Unspecified osteoarthritis, unspecified site; Z90.49 Acquired absence of other specified parts of digestive tract; Z98.51 Tubal ligation status; Z79.899 Other long term (current) drug therapy; Z68.36 Body mass index [BMI] 36.0-36.9, adult
CPT/HCPCS: 36415; 70450; 71045; 78452; 80048; 80061; 80076; 82550; 82553; 83735; 84132; 84484; 85025; 85379; 85610; 85730; 93005; 93017; 93306; 93971; 96372; 99285; A9502; G0378; J1650; J2785

== ENCOUNTER 2020-08-05 11:25 | Emergency (ER) | payer BC ==
--- NOTE | 2020-08-05 12:42 | Emergency Department Report ---
HPI - General Chief Complaint: Weakness Time Seen by Provider: 08/05/20 12:16 - HPI HPI: This is a 54-year-old female presents to the emergency department with a complaint of having some type of lightheadedness/dizziness at work prior to presentation. The patient says that she was walking out of her office when she started "staggering." She then went and sat down and the symptoms went away. She denies any headache, vision change, numbness or paresthesias, slurred speech, chest pain or shortness of breath, fever. She did not take anything for her symptoms prior to presentation. She has a past medical history of hypertension. She follows with [facility]. She follows with Dr. Baker for cardiology regarding her hypertension. No recent travel or sick contacts at home. ED Past Medical Hx - Past Medical History Previous Medical History?: Yes Hx Hypertension: Yes Hx Arthritis: Yes Additional medical history: MITRAL VALVE REGURGITATION - Surgical History Past Surgical History?: Yes Hx Cholecystectomy: Yes Hx Breast Surgery: Yes (BREAST SURGERY) Additional Surgical History: TUBAL LIGATION - Social History Smoking Status: Never Smoker Substance Use Type: None - Medications Home Medications: Home Medications Medication Instructions Recorded Confirmed Last Taken Type Amlodipine Besylate/Valsartan 10 - 320 mg PO QDAY 02/18/20 02/18/20 02/18/20 Hi story [Amlodipine-Valsartan 10-320 mg] Aspirin [Aspirin BABY CHEW TAB] 81 mg PO QDAY #30 tab.chew 02/19/20 Unknown Rx ED Review of Systems ROS: Stated complaint: MET Other details as noted in HPI Comment: All other systems reviewed and negative Constitutional: denies: chills, fever Eyes: denies: eye pain, vision change ENT: denies: ear pain, throat pain Respiratory: denies: cough, shortness of breath Cardiovascular: denies: chest pain, palpitations Gastrointestinal: denies: abdominal pain, vomiting Genitourinary: denies: dysuria, discharge Musculoskeletal: denies: back pain, arthralgia Skin: denies: rash, lesions Neurological: other (Lightheadedness/dizziness). denies: headache Physical Exam - Physical Exam Vital Signs: Vital Signs 08/05/20 11:29 Temperature 98.3 F Pulse Rate 90 Respiratory 14 Rate Blood Pressure 144/84 O2 Sat by Pulse 99 Oximetry Physical Exam: GENERAL: The patient is well-developed well-nourished. HENT: Normocephalic. Atraumatic. Patient has moist mucous membranes. EYES: Extraocular motions are intact. No nystagmus. NECK: Supple. Trachea is midline. CHEST/LUNGS: Clear to auscultation. There is no respiratory distress noted. HEART/CARDIOVASCULAR: Regular. There is no tachycardia. There is no murmur. ABDOMEN: Abdomen is soft, nontender. Patient has normal bowel sounds. SKIN: Skin is warm and dry. NEURO: The patient is awake, alert, and oriented. The patient is cooperative. The patient has no focal neurologic deficits. Normal speech. Cranial nerves II through XII grossly intact. No facial asymmetry. No pronator drift. No dysmetria. MUSCULOSKELETAL: There is no tenderness or deformity. There is no limitation range of motion. ED Course Vital Signs 08/05/20 11:29 Temperature 98.3 F Pulse Rate 90 Respiratory 14 Rate Blood Pressure 144/84 O2 Sat by Pulse 99 Oximetry - Reevaluation(s) Reevaluation #1: 08/05/20 15:13 Lab Results 08/05/20 08/05/20 08/05/20 Range/Units 12:48 12:48 12:48 WBC 7.4 (4.5-11.0) K/mm3 RBC 4.46 (3.65-5.03) M/mm3 Hgb 13.0 (10.1-14.3) gm/dl Hct 38.9 (30.3-42.9) % MCV 87 (79-97) fl MCH 29 (28-32) pg MCHC 34 (30-34) % RDW 13.7 (13.2-15.2) % Plt Count 333 (140-440) K/mm3 Lymph % (Auto) 43.9 H (13.4-35.0) % Lyman % (Auto) 6.2 (0.0-7.3) % Eos % (Auto) 1.0 (0.0-4.3) % Baso % (Auto) 0.6 (0.0-1.8) % Lymph # (Auto) 3.2 (1.2-5.4) K/mm3 Lyman # (Auto) 0.5 (0.0-0.8) K/mm3 Eos # (Auto) 0.1 (0.0-0.4) K/mm3 Baso # (Auto) 0.0 (0.0-0.1) K/mm3 Seg Neutrophils % 48.3 (40.0-70.0) % Seg Neutrophils # 3.6 (1.8-7.7) K/mm3 Sodium 140 (137-145) mmol/L Potassium 4.3 (3.6-5.0) mmol/L Chloride 97.6 L (98-107) mmol/L Carbon Dioxide 29 (22-30) mmol/L Anion Gap 18 mmol/L BUN 10 (7-17) mg/dL Creatinine 0.5 L (0.6-1.2) mg/dL Estimated GFR > 60 ml/min BUN/Creatinine Ratio 20 % Glucose 100 (65-100) mg/dL Calcium 9.7 (8.4-10.2) mg/dL Total Bilirubin 0.20 (0.1-1.2) mg/dL AST 28 (5-40) units/L ALT 30 (7-56) units/L Alkaline Phosphatase 70 (35-129) units/L Troponin T < 0.010 (0.00-0.029) ng/mL Total Protein 7.9 (6.3-8.2) g/dL Albumin 4.6 (3.9-5) g/dL Albumin/Globulin Ratio 1.4 % TSH 2.020 (0.270-4.200) mlU/mL ED Medical Decision Making - Lab Data Result diagrams: 08/05/20 12:48 08/05/20 12:48 - EKG Data -: EKG Interpreted by Ne EKG shows normal: sinus rhythm, axis, intervals, QRS complexes, ST-T waves Rate: normal - EKG Data When compared to previous EKG there are: no significant change Interpretation: unchanged when compared t (02/18/20) - Medical Decision Making This patient presents to the emergency department after having some type of nonspecific lightheadedness and/or dizziness episode that resolved when the patient sat down and rested. Symptoms have not returned and at the time of my initial examination the patient is asymptomatic and has no complaints. On examination she does not have any focal, motor or sensory deficits and her cranial nerves are intact. The patient has an NIH stroke scale of 0. Vital signs have been reassuring throughout her ED course including being afebrile. Labs have been unremarkable including CBC, metabolic panel, troponin, TSH level. She was reevaluated multiple times over multiple hours and has remained stable throughout her ED course. For all these reasons the patient appears safe for discharge home at this time. She was seen ambulatory in the emergency depar tment and both appears and feels stable. She has good outpatient follow-up with primary care and cardiology. She will return to the ER with any worsening of her symptoms or with any acute distress. Critical Care Time: No Critical care attestation.: If time is entered above; I have spent that time in minutes in the direct care of this critically ill patient, excluding procedure time. 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 Return to the emergency department with any worsening of your symptoms, new or concerning symptoms not addressed during this current emergency department visit, or with any acute distress. Referrals: JAVI ZAMBRANO MD [Primary Care Provider] - 2-3 Days Time of Disposition: 14:35 - Assessment Assessment Interval: Baseline - Level of Consciousness 1a. Level of Consciousness: alert/keenly responsive - LOC Questions 1b. LOC Questions: answers both correctly - LOC Command 1c. LOC Commands: performs tasks correctly - Best Gaze 2. Best Gaze: normal - Visual 3. Visual: no visual loss - Facial Palsy 4. Facial Palsy: normal symmetrical movement - Motor Arm 5a. Motor Arm Left: no drift 5b. Motor Arm Right: no drift - Motor Leg 6a. Motor Leg Left: no drift 6b. Motor Leg Right: no drift - Limb Ataxia 7. Limb Ataxia: absent - Sensory 8. Sensory: normal - Best Language 9. Best Language: no aphasia - Dysarthria 10. Dysarthria: normal - Extinction and Inattention 11. Extinction/Inattention: no abnormality - Scoring Total Score: 0 Stroke Severity: No Stroke Symptoms
[2020-08-05 13:31] LABS: Basophils % (Auto) 0.6 % (0.0-1.8); Eosinophils # (Auto) 0.1 K/mm3 (0.0-0.4); Hematocrit 38.9 % (30.3-42.9); Lymphocytes # (Auto) 3.2 K/mm3 (1.2-5.4); Lymphocytes % (Auto) 43.9 % (13.4-35.0); Mean Corpuscular HGB Conc 34 % (30-34); Mean Corpuscular Volume 87 fl (79-97); Monocytes # (Auto) 0.5 K/mm3 (0.0-0.8); Monocytes % (Auto) 6.2 % (0.0-7.3); Platelet Count 333 K/mm3 (140-440); Red Blood Count 4.46 M/mm3 (3.65-5.03); Red Cell Distribution Width 13.7 % (13.2-15.2)
[2020-08-05 13:45] LABS: Alanine Aminotransferase 30 units/L (7-56); Albumin 4.6 g/dL (3.9-5); Blood Urea Nitrogen 10 mg/dL (7-17); Calcium 9.7 mg/dL (8.4-10.2); Hemolysis Index 55
[2020-08-05 13:46] LABS: BUN/Creatinine Ratio 20
[2020-08-05 14:58] VITALS: BP 149/80
== END 2020-08-05 14:45 | disposition home or self-care (01) ==
LOC: ED 11:25
DX: R42 Dizziness and giddiness (principal); I10 Essential (primary) hypertension; M13.88 Other specified arthritis, other site; Z90.49 Acquired absence of other specified parts of digestive tract; Z98.51 Tubal ligation status; Z98.890 Other specified postprocedural states; Z79.899 Other long term (current) drug therapy
CPT/HCPCS: 36415; 80053; 84443; 84484; 85025; 93005; 99283

== ENCOUNTER 2020-09-08 13:28 | Outpatient (CLI) | payer BC ==
--- NOTE | 2020-09-08 15:16 | Magnetic Resonance Report ---
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 COMPARISON: None available. TECHNIQUE: Multisequence, multiplanar images were obtained. FINDINGS: ACETABULAR LABRUM: No significant abnormality. ARTICULAR CARTILAGE: No significant abnormality. JOINT SPACE AND CAPSULE: No significant abnormality. GLUTEAL MUSCLES/TENDONS: There is moderate thickening and intermediate signal in the distal gluteus m edius tendon, without appreciable tear consistent with tendinosis. ILIOPSOAS MUSCLES/TENDON: No significant abnormality. PROXIMAL HAMSTRING TENDONS: No significant abnormality. GROIN MUSCLES/TENDONS: No significant abnormality. SUBCUTANEOUS SOFT TISSUES: There is a 3.2 x 2.2 cm mass in the adjacent to the right ischial tuberosi ty in the right upper thigh along the medial aspect of the proximal hamstring tendons. The mass is is ointense to skeletal muscle on T1 images and heterogeneously hyperintense on T2 images. BONES: No significant bone marrow edema. No fracture. No osseous lesion. SACROILIAC JOINT(S): No significant abnormality. LOWER LUMBAR SPINE: No significant abnormality of visualized lower lumbar spine. SOFT TISSUE WITHIN PELVIS: Diverticulosis is seen. ADDITIONAL FINDINGS: None. IMPRESSION: 1. Moderate tendinosis of the left gluteus medius tendon without appreciable significant tear. 2. 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 However, complete characteriza tion with MRI of the right upper thigh without and with contrast is recommended. Signer Name: Prince Alejandro MD Signed: 09/08/2020 3:12 PM Workstation Name: [id number]
== END 2020-09-08 13:29 | disposition home or self-care (01) ==
LOC: MRI 13:28
PROVIDERS: ATTEND Orthopaedic Surgery
DX: M76.02 Gluteal tendinitis, left hip (principal); R22.41 Localized swelling, mass and lump, right lower limb; K57.30 Diverticulosis of large intestine without perforation or abscess without bleeding
CPT/HCPCS: 73721

== ENCOUNTER 2020-11-03 13:16 | Outpatient (CLI) | payer BC ==
--- NOTE | 2020-11-03 16:18 | Magnetic Resonance Report ---
MRI right thigh with and without contrast HISTORY: MASS OF RIGHT THIGH. Incidental note of a small mass adjacent to the right ischial tuberosi ty on recent MRI performed 09/08/2020, here for follow-up exam TECHNIQUE: 15 mL of MultiHance was given intravenously. COMPARISON: Left hip MRI from 09/08/2020 FINDINGS: There is a small oval-shaped mass immediately adjacent to the right ischial tuberosity and hamstring tendons which measures 2.5 x 2.3 x 3.6 cm in maximal transverse and craniocaudal dimension s. There is heterogeneous T2 signal and also mild heterogeneous enhancement. The surrounding soft tis sues are completely normal and this finding is well delineated. Specifically there is no abnormal prince rounding enhancement or edema and there is no pathologic adenopathy. The adjacent musculature appears normal and fatty planes are mildly displaced which is typically more nonaggressive finding. Otherwise there are moderate degenerative changes in the visualized right hip and at the pubic symphy sis with no significant incidental soft tissue finding. IMPRESSION: Small ovoid mass adjacent to the right ischial tuberosity as outlined above. This small mass has a nonaggressive appearance as outlined above. Given location, appearance, and proximity to t he hamstring tendons, considerations would be sequelae of old trauma, sequelae of old hemorrhagic bur sitis, or possibly a small peripheral nerve sheath tumor arising from a branch nerve since the main s ciatic nerve complex is seen medial to this finding. Signer Name: Horacio Noriega MD Signed: 11/03/2020 4:14 PM Workstation Name: [id number]
== END 2020-11-03 13:17 | disposition home or self-care (01) ==
LOC: MRI 13:16
PROVIDERS: ATTEND Family Medicine
DX: M16.11 Unilateral primary osteoarthritis, right hip (principal); R22.41 Localized swelling, mass and lump, right lower limb
CPT/HCPCS: 73723; A9577